=== PATIENT | female | born 1950 | race Caucasian/White ===

== ENCOUNTER 2017-04-04 22:16 | Emergency (ER) | payer MEDICARE, OTHER ==
[~2017-04-04] VITALS: Ht 162.6 cm; Wt 70.3 kg
--- NOTE | 2017-04-04 22:30 | NUR ---
To room 2B. S/P fall, R hand swelling and pain. Also with multiple scratches noted to L leg and L arm.
--- NOTE | 2017-04-04 23:00 | NUR ---
Seen and evaluated by Dr. Wynne.
[2017-04-05] MEDS ORDERED: OXYCODONE/APAP 5-325 MG TABLET PO ONE
[2017-04-05] MEDS ORDERED: OXYCODONE/APAP 5-325 MG TABLET ONE (00:13)
--- NOTE | 2017-04-05 00:35 | NUR ---
Patient discharged to home in stable conditon. Prescription, written and verbal after care instructions given. Patient verbalizes understanding of instructions.
[2017-04-05] MEDS ORDERED: NEOMY/BACITRA/POLYMYXIN B OINT UD PACKET TP ONE (00:39)
[2017-04-05 01:04] VITALS: BP 158/88
== END 2017-04-05 00:35 | disposition home or self-care (01) ==
LOC: ER 22:17
DX: S62.101A Fracture of unspecified carpal bone, right wrist, initial encounter for closed fracture (principal); S80.812A Abrasion, left lower leg, initial encounter; W55.03XA Scratched by cat, initial encounter; Y93.89 Activity, other specified; Y92.9 Unspecified place or not applicable; Y99.9 Unspecified external cause status
CPT/HCPCS: 73110; A4663